=== PATIENT | female | born 1985 | race African-American/Black ===

== ENCOUNTER → 2020-02-15 | Emergency (ER) | payer MEDICAID, OTHER ==
[~2020-02-15] VITALS: Ht 188 cm; Wt 95.3 kg
[2020-02-15 21:39] VITALS: BP 145/94
== END | disposition home or self-care (01) ==
LOC: ER 20:54
DX: M79.641 Pain in right hand (principal); M79.89 Other specified soft tissue disorders
CPT/HCPCS: 73200